=== PATIENT | male | born 1945 | race Caucasian/White ===

== ENCOUNTER 2016-05-13 10:09 | Outpatient (RCR) | payer MEDICARE, OTHER ==
--- OUTSIDE RECORDS SUMMARY | 2016-02-20 13:29 | XMS REPORT | Continuity of Care Document ---
Author Author [facility] Organization [facility] Address Unknown Phone Unavailable Care Team Providers Care Air Brush Operator Name Role Phone BENITO LEE DO PCP Insurance Providers Payer Name Policy Number Subscriber Name Relationship [employer] Medicare [id number] Vic Peres 17 Self / Same As Patient [facility] [id number] Blanca Peres 17 Self / Same As Patient Advance Directives Directive Response Recorded Date/Time Advance Directives No 10/31/14 9:14am Health Care Power of Bullet Slugs Inspector No 10/31/14 9:14am Organ Donor No 10/31/14 9:14am Resuscitation Status Full Code 10/31/14 9:14am Problems No known problems or medical conditions. Medications Medication Dose Route Sig Days/Qty Instructions Order Date Discontinued Date Status Rosuvastatin Calcium 1 Each PO BEDTIME 06/15/11 09/26/13 Discontinued Metformin HCl (Glucophage) 2 Each PO TWICE A DAY 06/15/11 09/26/13 Discontinued Lisinopril 5 Mg PO DAILY 07/13/11 Active Carvedilol (Coreg) 1 Each PO TWICE A DAY 07/13/11 09/26/13 Discontinued Aspirin 325 Mg PO DAILY 07/13/11 09/26/13 Discontinued [Effident] 10 Mg PO DAILY 07/13/11 03/17/13 Discontinued Gabapentin 600 Mg PO WITH EVENING MEAL TAKES 2 (300MG) CAPSULES Active Fish Oil 1,000 Mg PO THREE TIMES A DAY 03/17/13 Active Clopidogrel Bisulfate 75 Mg PO DAILY 03/17/13 Active Rosuvastatin Calcium 20 Mg PO BEDTIME 09/26/13 Active Metformin Hcl 1,000 Mg PO TWICE A DAY 09/26/13 10/31/14 Discontinued Carvedilol 3.125 Mg PO TWICE A DAY 09/26/13 10/31/14 Discontinued Aspirin 81 Mg PO DAILY 09/26/13 Active Albuterol Sulfate 2.5 Mg IH FOUR TIMES DAILY PRN SHORTNESS OF BREATH 10/06/13 10/31/14 Discontinued Carvedilol (Coreg) 3.125 Mg PO TWICE A DAY 10/31/14 Active Ferrous Sulfate 325 Mg PO BEDTIME 10/31/14 Active Social History Social History Problem Response Recorded Date/Time Alcohol Use Denies Use 10/26/2013 1:00pm Recreational Drug Use No 10/26/2013 1:00pm Recent Foreign Travel No 10/26/2013 1:00pm Recent Infectious Disease Exposure No 10/26/2013 1:00pm Hospitalization with Isolation Denies 10/27/2013 1:31pm Smoking Status Former Smoker 10/31/2014 9:15am Do you dip or chew tobacco? No 10/31/2014 9:15am Query Response Start Date Stop Date Smoking Status Former Smoker 10/31/1980 Hospital Discharge Instructions No hospital discharge instructions. Plan of Care No plan of care. Functional Status No functional status results. Allergies, Adverse Reactions, Alerts Allergen Type Severity Reaction Status Last Updated No Known Drug Allergies Active 06/15/11 Immunizations Name Given Type Date of Pneumonia Vaccine 06/02/11 Historical Date of Influenza Vaccine 03/16/11 Historical Tetanus Booster (TDap) Unknown Historical Vital Signs Acute Vital Signs Vital Response Date/Time Temperature (Fahrenheit) 97.8 degrees F (97.6 - 99.5) Temperature (Calculated Celsius) 36.10946 degrees C (36.4 - 37.5) Temperature Source Temporal Pulse Rate (adult) 61 bpm (60 - 90) Respiratory Rate 18 bpm (12 - 24) O2 Sat by Pulse Oximetry 100 % (88 - 100) Blood Pressure 111/72 mm Hg Pain Pain Intensity 0 Height (Feet) 5 feet Height (Inches) 10.00 inches Height (Calculated Centimeters) 177.904165 cm Weight (Pounds) 194 pounds Weight (Calculated Grams) 99088.921 gm Weight (Calculated Kilograms) 87.433774 kilograms Calculated BMI 27.83 Results Laboratory Results Test Name Result Units Flags Reference Collection Date/Time Result Date/ Time Comments Sodium Level 142 MMOL/L 135-145 10/11/2014 6:58am 10/11/2014 7:40am Potassium Level 4.8 MMOL/L 3.6-5.0 10/11/2014 6:58am 10/11/2014 7:40am Chloride Level 107 MMOL/L 98-107 10/11/2014 6:58am 10/11/2014 7:40am Carbon Dioxide Level 26 MMOL/L 21-32 10/11/2014 6:58am 10/11/2014 7: 40am Blood Urea Nitrogen 21 MG/DL H 7-18 10/11/2014 6:58am 10/11/2014 7:40am Creatinine 1.19 MG/DL 0.60-1.30 10/11/2014 6:58am 10/11/2014 7:40am BUN/Creatinine Ratio 18 10/11/2014 6:58am 10/11/2014 7:40am Estimat Glomerular Filtration Rate 60 10/11/2014 6:58am 10/11/2014 7:40am GFR INTERPRETIVE DATA UNITS FOR ESTIMATED GFR (eGFR): mL/min/1.73 M2 REFERENCE RANGE FOR ESTIMATED GFR (eGFR) eGFR NORMAL eGFR >60 MODERATELY DECREASED eGFR 30-59 SEVERLY DECREASED eGFR 15-29 KIDNEY FAILURE <15 (OR DIALYSIS) Glucose Level 108 MG/DL H 70-105 10/11/2014 6:58am 10/11/2014 7:40am Calcium Level 10.1 MG/DL 8.5-10.1 10/11/2014 6:58am 10/11/2014 7:40am Total Bilirubin 0.4 MG/DL 0.1-1.0 10/11/2014 6:58am 10/11/2014 7:40am Alkaline Phosphatase 66 U/L 40-136 10/11/2014 6:58am 10/11/2014 7:40am Aspartate Amino Transf (AST/SGOT) 17 U/L 5-34 10/11/2014 6:58am 2014 7:40am Alanine Aminotransferase (ALT/SGPT) 11 U/L 0-55 10/11/2014 6:58am 10/11 7:40am Total Protein 7.2 G/DL 6.4-8.2 10/11/2014 6:58am 10/11/2014 7:40am Albumin 3.9 G/DL 3.2-4.5 10/11/2014 6:58am 10/11/2014 7:40am Triglycerides Level 135 MG/DL <150 10/11/2014 6:58am 10/11/2014 7:40am Cholesterol Level 143 MG/DL < 200 10/11/2014 6:58am 10/11/2014 7:40am HDL Cholesterol 42 MG/DL 40-60 10/11/2014 6:58am 10/11/2014 7:40am LDL Cholesterol Direct 68 MG/DL 1-129 10/11/2014 6:58am 10/11/2014 7: 40am VLDL Cholesterol 27 MG/DL 5-40 10/11/2014 6:58am 10/11/2014 7:40am White Blood Count 10.7 10^3/uL 4.3-11.0 10/31/2014 9:2510/31/2014 9: 31am Red Blood Count 4.71 10^6/uL 4.35-5.85 10/31/2014 9:10/31/2014 9: 31am Hemoglobin 13.6 G/DL 13.3-17.7 10/31/2014 9:10/31/2014 9:31am Hematocrit 43 % 40-54 10/31/2014 9:10/31/2014 9:31am Mean Corpuscular Volume 91 FL 80-99 10/31/2014 9:10/31/2014 9: 31am Mean Corpuscular Hemoglobin 29 PG 25-34 10/31/2014 9:2510/31/2014 9: 31am Mean Corpuscular Hemoglobin Concent 32 G/DL 32-36 10/31/2014 9:25 9:31am Red Cell Distribution Width 14.4 % 10.0-14.5 10/31/2014 9:252014 9:31am Platelet Count 230 10^3/uL 130-400 10/31/2014 9:10/31/2014 9:31am Mean Platelet Volume 9.3 FL 7.4-10.4 10/31/2014 9:10/31/2014 9: 31am Prothrombin Time 11.8 SEC L 12.2-14.7 10/31/2014 9:10/31/2014 9: 41am INR Comment 0.9 0.8-1.4 10/31/2014 9:10/31/2014 9:41am INTERPRETIVE DATA SUGGESTED THERAPEUTIC RANGE FOR INR'S: VENOUS THROMBOSIS, PULMONARY EMBOLISM, OR PREVENTION OF SYSTEMIC EMBOLISM (EG. IN ATRIAL FIBRILLATION): 2.0 - 3.0 MECHANICAL PROSTHETIC HEART VALVES: 2.5 - 3.5* *NOTE: INR'S UP TO 4.5 MAY BE NECESSARY IN SELECTED GROUPS OF HIGH RISK PATIENTS. [employer] CONSENSUS CONFERENCE ON ANTITHROMBOTIC THERAPY (2000). Activated Partial Thromboplast Time 31 SEC 24-35 10/31/2014 9: 9:41am Sodium Level 142 MMOL/L 135-145 10/31/2014 9:10/31/2014 9:49am Potassium Level 4.8 MMOL/L 3.6-5.0 10/31/2014 9:10/31/2014 9:49am Chloride Level 106 MMOL/L 98-107 10/31/2014 9:10/31/2014 9:49am Carbon Dioxide Level 27 MMOL/L 21-32 10/31/2014 9:10/31/2014 9: 49am Blood Urea Nitrogen 18 MG/DL 7-18 10/31/2014 9:10/31/2014 9:49am Creatinine 1.32 MG/DL H 0.60-1.30 10/31/2014 9:10/31/2014 9:49am BUN/Creatinine Ratio 14 10/31/2014 9:10/31/2014 9:49am Estimat Glomerular Filtration Rate 54 10/31/2014 9:10/31/2014 9:49am GFR INTERPRETIVE DATA UNITS FOR ESTIMATED GFR (eGFR): mL/min/1.73 M2 REFERENCE RANGE FOR ESTIMATED GFR (eGFR) eGFR NORMAL eGFR >60 MODERATELY DECREASED eGFR 30-59 SEVERLY DECREASED eGFR 15-29 KIDNEY FAILURE <15 (OR DIALYSIS) Glucose Level 107 MG/DL H 70-105 10/31/2014 9:10/31/2014 9:49am Calcium Level 10.0 MG/DL 8.5-10.1 10/31/2014 9:10/31/2014 9:49am Total Bilirubin 0.4 MG/DL 0.1-1.0 10/31/2014 9:10/31/2014 9:49am Alkaline Phosphatase 74 U/L 40-136 10/31/2014 9:10/31/2014 9:49am Aspartate Amino Transf (AST/SGOT) 24 U/L 5-34 10/31/2014 9:2014 9:49am Alanine Aminotransferase (ALT/SGPT) 18 U/L 0-55 10/31/2014 9:10/31 9:49am Total Protein 7.6 G/DL 6.4-8.2 10/31/2014 9:10/31/2014 9:49am Albumin 4.2 G/DL 3.2-4.5 10/31/2014 9:10/31/2014 9:49am Triglycerides Level 152 MG/DL H <150 10/31/2014 9:10/31/2014 9:49am Cholesterol Level 157 MG/DL < 200 10/31/2014 9:10/31/2014 9:49am HDL Cholesterol 46 MG/DL 40-60 10/31/2014 9:10/31/2014 9:49am LDL Cholesterol Direct 73 MG/DL 1-129 10/31/2014 9:10/31/2014 9: 49am VLDL Cholesterol 30 MG/DL 5-40 10/31/2014 9:10/31/2014 9:49am Procedures Procedure Status Date Provider(s) Color Doppler echocardiography completed 10/10/14 PREETI WALTON DOORPERSON Tracing only of electrocardiogram completed 10/31/14 RACHEL BERGERON MD FACP FAC CCDS Encounters Encounter Location Date/Time Departed [facility] 10/31/14 8:58am Registered Clinic [facility] 10/11/14 6:53am Registered Clinic [facility] 10/10/14 6:52am
[2016-03-05 11:46] LABS: BASOPHILS % (AUTO) 0 % (0-10); EOSINOPHILS # (AUTO) 0.1 10^3/uL (0.0-0.3); EOSINOPHILS % (AUTO) 2 % (0-10); LYMPHOCYTES # (AUTO) 1.3 X 10^3 (1.0-4.0); LYMPHOCYTES % (AUTO) 20 % (12-44); MEAN CORPUSCULAR HEMOGLOBIN 30 PG (25-34); MEAN CORPUSCULAR HGB CONC 31 G/DL (32-36); MEAN CORPUSCULAR VOLUME 95 FL (80-99); MONOCYTES # (AUTO) 0.6 X 10^3 (0.0-1.0); MONOCYTES % (AUTO) 9 % (0-12); NEUTROPHILS # (AUTO) 4.5 X 10^3 (1.8-7.8); NEUTROPHILS % (AUTO) 68 % (42-75); PLATELET COUNT 196 10^3/uL (130-400); RED BLOOD COUNT 3.59 10^6/uL (4.35-5.85); RED CELL DISTRIBUTION WIDTH 14.3 % (10.0-14.5); WHITE BLOOD COUNT 6.5 10^3/uL (4.3-11.0)
[2016-03-05 12:36] LABS: ALANINE AMINOTRANSFERASE 11 U/L (0-55); ALBUMIN 3.6 G/DL (3.2-4.5); ANION GAP 7 MMOL/L (5-14); ASPARTATE AMINO TRANSFERASE 18 U/L (5-34); BILIRUBIN,TOTAL 0.2 MG/DL (0.1-1.0); BLOOD UREA NITROGEN 22 MG/DL (7-18); BUN/CREATININE RATIO 23; CALCIUM 9.5 MG/DL (8.5-10.1); CARBON DIOXIDE 32 MMOL/L (21-32); CHLORIDE 101 MMOL/L (98-107); CREATININE SERUM 0.96 MG/DL (0.60-1.30); GFR ESTIMATED > 60; GLUCOSE 131 MG/DL (70-105); POTASSIUM 4.1 MMOL/L (3.6-5.0); SODIUM 140 MMOL/L (135-145); TOTAL PROTEIN 6.6 G/DL (6.4-8.2)
[2016-03-05 12:57] LABS: THYROID STIMULATING HORMONE 4.81 UIU/ML (0.35-4.94)
[2016-03-05 14:13] LABS: %SAT TOTAL IRON BINDING CAPIC 15 % (15-50); TIBC 300 ug/dL (280-380)
[2016-03-06 07:56] LABS: UIBC 256 ug/dL (55-450)
[2016-03-06 07:57] LABS: FERRITIN 150 ng/mL (25-300)
[2016-03-19 14:39] LABS: BASOPHILS % (AUTO) 1 % (0-10); EOSINOPHILS # (AUTO) 0.1 10^3/uL (0.0-0.3); EOSINOPHILS % (AUTO) 1 % (0-10); LYMPHOCYTES # (AUTO) 1.5 X 10^3 (1.0-4.0); LYMPHOCYTES % (AUTO) 29 % (12-44); MEAN CORPUSCULAR HEMOGLOBIN 30 PG (25-34); MEAN CORPUSCULAR HGB CONC 31 G/DL (32-36); MEAN CORPUSCULAR VOLUME 95 FL (80-99); MEAN PLATELET VOLUME 8.2 FL (7.4-10.4); MONOCYTES # (AUTO) 0.6 X 10^3 (0.0-1.0); MONOCYTES % (AUTO) 11 % (0-12); NEUTROPHILS % (AUTO) 58 % (42-75); PLATELET COUNT 213 10^3/uL (130-400); RED BLOOD COUNT 3.73 10^6/uL (4.35-5.85); RED CELL DISTRIBUTION WIDTH 14.2 % (10.0-14.5); WHITE BLOOD COUNT 5.1 10^3/uL (4.3-11.0)
[2016-03-19 15:06] LABS: ALBUMIN 3.6 G/DL (3.2-4.5); BILIRUBIN,TOTAL 0.2 MG/DL (0.1-1.0); CALCIUM 9.3 MG/DL (8.5-10.1); CREATININE SERUM 1.25 MG/DL (0.60-1.30); POTASSIUM 4.5 MMOL/L (3.6-5.0); TOTAL PROTEIN 6.7 G/DL (6.4-8.2)
[2016-04-02 14:18] LABS: BASOPHILS % (AUTO) 1 % (0-10); EOSINOPHILS # (AUTO) 0.1 10^3/uL (0.0-0.3); EOSINOPHILS % (AUTO) 1 % (0-10); LYMPHOCYTES # (AUTO) 1.4 X 10^3 (1.0-4.0); LYMPHOCYTES % (AUTO) 17 % (12-44); MEAN CORPUSCULAR HEMOGLOBIN 30 PG (25-34); MEAN CORPUSCULAR HGB CONC 32 G/DL (32-36); MEAN CORPUSCULAR VOLUME 95 FL (80-99); MEAN PLATELET VOLUME 7.8 FL (7.4-10.4); MONOCYTES # (AUTO) 0.9 X 10^3 (0.0-1.0); MONOCYTES % (AUTO) 10 % (0-12); NEUTROPHILS # (AUTO) 6.2 X 10^3 (1.8-7.8); NEUTROPHILS % (AUTO) 72 % (42-75); PLATELET COUNT 228 10^3/uL (130-400); RED CELL DISTRIBUTION WIDTH 14.3 % (10.0-14.5); WHITE BLOOD COUNT 8.6 10^3/uL (4.3-11.0)
[2016-04-02 14:42] LABS: ALBUMIN 3.5 G/DL (3.2-4.5); BILIRUBIN,TOTAL 0.4 MG/DL (0.1-1.0); CALCIUM 9.5 MG/DL (8.5-10.1); CREATININE SERUM 1.3 MG/DL (0.60-1.30); TOTAL PROTEIN 6.4 G/DL (6.4-8.2)
[2016-04-15 14:34] LABS: BASOPHILS % (AUTO) 0 % (0-10); EOSINOPHILS # (AUTO) 0.1 10^3/uL (0.0-0.3); EOSINOPHILS % (AUTO) 2 % (0-10); LYMPHOCYTES # (AUTO) 1.7 X 10^3 (1.0-4.0); LYMPHOCYTES % (AUTO) 22 % (12-44); MEAN CORPUSCULAR HEMOGLOBIN 30 PG (25-34); MEAN CORPUSCULAR HGB CONC 32 G/DL (32-36); MEAN CORPUSCULAR VOLUME 95 FL (80-99); MEAN PLATELET VOLUME 7.6 FL (7.4-10.4); MONOCYTES # (AUTO) 0.7 X 10^3 (0.0-1.0); MONOCYTES % (AUTO) 9 % (0-12); NEUTROPHILS # (AUTO) 5.2 X 10^3 (1.8-7.8); NEUTROPHILS % (AUTO) 67 % (42-75); PLATELET COUNT 265 10^3/uL (130-400); RED BLOOD COUNT 3.82 10^6/uL (4.35-5.85); RED CELL DISTRIBUTION WIDTH 14.4 % (10.0-14.5); WHITE BLOOD COUNT 7.6 10^3/uL (4.3-11.0)
[2016-04-15 15:39] LABS: ALANINE AMINOTRANSFERASE 18 U/L (0-55); ALBUMIN 3.4 G/DL (3.2-4.5); ANION GAP 9 MMOL/L (5-14); ASPARTATE AMINO TRANSFERASE 29 U/L (5-34); BILIRUBIN,TOTAL 0.3 MG/DL (0.1-1.0); BLOOD UREA NITROGEN 25 MG/DL (7-18); BUN/CREATININE RATIO 21; CALCIUM 9.5 MG/DL (8.5-10.1); CARBON DIOXIDE 32 MMOL/L (21-32); CHLORIDE 95 MMOL/L (98-107); CREATININE SERUM 1.17 MG/DL (0.60-1.30); GFR ESTIMATED > 60; GLUCOSE 108 MG/DL (70-105); SODIUM 136 MMOL/L (135-145); TOTAL PROTEIN 5.9 G/DL (6.4-8.2)
[~2016-05-13] VITALS: Ht 177.8 cm; Wt 71.2 kg
[~2016-05-13 10:09] MED LIST: ALBU2.5V4 IH; ASPI-624 PO; ASPI325T32 PO; CARV3.12 PO; CARV3.122 PO; CARV6.252 PO; CEFU500T5 PO; CLPD75T PO; FERR-57 PO; GBPN300C PO; HYDR-3812 PO; HYDR-3820 PO; LEVO50TA6 PO; LEVO750T39 PO; LISI5TAB PO; MAGN400T39 PO; METF-380 PO; METF1000 PO; MORP-34 PO; MORP15TA PO; MORP60TA52 PO; MTF500T PO; NFPRILOC40 PO; NIVOLUMAB IV SCH; NS IV 500 ML (CANCER CENTER) IV SCH; NS IV SCH; OMG1KC PO; ONDA8TAB6 PO; ROSU10TA12 PO; ROSU20TA14 PO; TAMS0.4C2 PO; [UNRECOGNIZED DRUG - OTHER] PO
== END 2016-05-20 | disposition home or self-care (01) ==
LOC: ONC 10:09
PROVIDERS: ATTEND Internal Medicine Hematology & Oncology
DX: Z51.0 Encounter for antineoplastic radiation therapy (principal); Z51.11 Encounter for antineoplastic chemotherapy; C34.11 Malignant neoplasm of upper lobe, right bronchus or lung; C79.51 Secondary malignant neoplasm of bone; D64.9 Anemia, unspecified; E11.21 Type 2 diabetes mellitus with diabetic nephropathy; I10 Essential (primary) hypertension; I25.10 Atherosclerotic heart disease of native coronary artery without angina pectoris; N28.9 Disorder of kidney and ureter, unspecified; Z79.899 Other long term (current) drug therapy
CPT/HCPCS: 36415; 36591; 77280; 77295; 77334; 77336; 77412; 77417; 80053; 82728; 83540; 84443; 85025; 96413; 99213

== ENCOUNTER → 2016-08-19 | Outpatient (RCR) | payer MEDICARE, OTHER ==
--- OUTSIDE RECORDS SUMMARY | 2016-05-21 14:04 | XMS REPORT | Continuity of Care Document ---
Author Author [facility] Organization [facility] Address Unknown Phone Unavailable Care Team Providers Care Cardiology Clinical Nurse Specialist Name Role Phone BENITO LEE DO PCP Insurance Providers Payer Name Policy Number Subscriber Name Relationship [employer] Medicare [id number] Vic Peres 17 Self / Same As Patient [facility] [id number] Blanca Peres 17 Self / Same As Patient Advance Directives Directive Response Recorded Date/Time Advance Directives No 10/31/14 9:14am Health Care Power of Price Analyst No 10/31/14 9:14am Organ Donor No 10/31/14 [...] F (97.6 - 99.5) Temperature (Calculated Celsius) 36.06741 degrees C (36.4 - 37.5) Temperature Source Temporal Pulse Rate (adult) 61 bpm (60 - 90) Respiratory Rate 18 bpm (12 - 24) O2 Sat by Pulse Oximetry 100 % (88 - 100) Blood Pressure 111/72 mm Hg Pain Pain Intensity 0 Height (Feet) 5 feet Height (Inches) 10.00 inches Height (Calculated Centimeters) 177.002995 cm Weight (Pounds) 194 pounds Weight (Calculated Grams) 09328.921 gm Weight (Calculated Kilograms) 87.875200 kilograms Calculated BMI 27.83 Results Laboratory Results [...] SELECTED GROUPS OF HIGH RISK PATIENTS. [employer] CONSENSUS CONFERENCE ON [...] Color Doppler echocardiography completed 10/10/14 PREETI WALTON ANCHOR OPERATOR Tracing only of electrocardiogram completed 10/31/14 RACHEL BERGERON MD FACP FAC CCDS Encounters Encounter Location Date/Time Departed [facility] 10/31/14 8:58am Registered Clinic [facility] 10/11/14 6:53am Registered Clinic [facility] 10/10/14 6:52am
[2016-05-21 14:41] LABS: BASOPHILS % (AUTO) 0 % (0-10); EOSINOPHILS # (AUTO) 0.1 10^3/uL (0.0-0.3); EOSINOPHILS % (AUTO) 1 % (0-10); LYMPHOCYTES # (AUTO) 1.1 X 10^3 (1.0-4.0); LYMPHOCYTES % (AUTO) 16 % (12-44); MEAN CORPUSCULAR HEMOGLOBIN 30 PG (25-34); MEAN CORPUSCULAR HGB CONC 32 G/DL (32-36); MEAN CORPUSCULAR VOLUME 95 FL (80-99); MEAN PLATELET VOLUME 8.3 FL (7.4-10.4); MONOCYTES # (AUTO) 0.8 X 10^3 (0.0-1.0); MONOCYTES % (AUTO) 12 % (0-12); NEUTROPHILS # (AUTO) 4.6 X 10^3 (1.8-7.8); NEUTROPHILS % (AUTO) 70 % (42-75); PLATELET COUNT 256 10^3/uL (130-400); RED BLOOD COUNT 3.92 10^6/uL (4.35-5.85); RED CELL DISTRIBUTION WIDTH 14.8 % (10.0-14.5); WHITE BLOOD COUNT 6.6 10^3/uL (4.3-11.0)
[2016-05-21 15:08] LABS: ALANINE AMINOTRANSFERASE 10 U/L (0-55); ALBUMIN 3.4 G/DL (3.2-4.5); ANION GAP 13 MMOL/L (5-14); ASPARTATE AMINO TRANSFERASE 17 U/L (5-34); BILIRUBIN,TOTAL 0.3 MG/DL (0.1-1.0); BLOOD UREA NITROGEN 27 MG/DL (7-18); BUN/CREATININE RATIO 28; CALCIUM 9.7 MG/DL (8.5-10.1); CARBON DIOXIDE 27 MMOL/L (21-32); CHLORIDE 99 MMOL/L (98-107); CREATININE SERUM 0.98 MG/DL (0.60-1.30); GFR ESTIMATED > 60; GLUCOSE 108 MG/DL (70-105); POTASSIUM 4.4 MMOL/L (3.6-5.0); SODIUM 139 MMOL/L (135-145); TOTAL PROTEIN 6.3 G/DL (6.4-8.2)
[2016-06-02 14:19] LABS: BASOPHILS % (AUTO) 0 % (0-10); EOSINOPHILS # (AUTO) 0.1 10^3/uL (0.0-0.3); EOSINOPHILS % (AUTO) 1 % (0-10); LYMPHOCYTES # (AUTO) 1.1 X 10^3 (1.0-4.0); LYMPHOCYTES % (AUTO) 20 % (12-44); MEAN CORPUSCULAR HEMOGLOBIN 30 PG (25-34); MEAN CORPUSCULAR HGB CONC 32 G/DL (32-36); MEAN CORPUSCULAR VOLUME 94 FL (80-99); MEAN PLATELET VOLUME 7.5 FL (7.4-10.4); MONOCYTES # (AUTO) 0.7 X 10^3 (0.0-1.0); MONOCYTES % (AUTO) 12 % (0-12); NEUTROPHILS # (AUTO) 3.8 X 10^3 (1.8-7.8); NEUTROPHILS % (AUTO) 66 % (42-75); PLATELET COUNT 277 10^3/uL (130-400); RED BLOOD COUNT 3.93 10^6/uL (4.35-5.85); RED CELL DISTRIBUTION WIDTH 14.9 % (10.0-14.5); WHITE BLOOD COUNT 5.7 10^3/uL (4.3-11.0)
[2016-06-02 14:48] LABS: ALANINE AMINOTRANSFERASE 11 U/L (0-55); ANION GAP 10 MMOL/L (5-14); ASPARTATE AMINO TRANSFERASE 17 U/L (5-34); BILIRUBIN,TOTAL 0.3 MG/DL (0.1-1.0); BLOOD UREA NITROGEN 29 MG/DL (7-18); BUN/CREATININE RATIO 28; CALCIUM 9.7 MG/DL (8.5-10.1); CARBON DIOXIDE 31 MMOL/L (21-32); CHLORIDE 95 MMOL/L (98-107); CREATININE SERUM 1.03 MG/DL (0.60-1.30); GFR ESTIMATED > 60; GLUCOSE 103 MG/DL (70-105); MAGNESIUM 2.2 MG/DL (1.8-2.4); POTASSIUM 4.7 MMOL/L (3.6-5.0); SODIUM 136 MMOL/L (135-145); TOTAL PROTEIN 5.8 G/DL (6.4-8.2)
[2016-06-02 15:09] LABS: THYROID STIMULATING HORMONE 2.64 UIU/ML (0.35-4.94)
[2016-06-16 13:52] LABS: BASOPHILS % (AUTO) 0 % (0-10); EOSINOPHILS % (AUTO) 0 % (0-10); LYMPHOCYTES # (AUTO) 0.7 X 10^3 (1.0-4.0); LYMPHOCYTES % (AUTO) 10 % (12-44); MEAN CORPUSCULAR HEMOGLOBIN 30 PG (25-34); MEAN CORPUSCULAR HGB CONC 32 G/DL (32-36); MEAN CORPUSCULAR VOLUME 95 FL (80-99); MEAN PLATELET VOLUME 7.5 FL (7.4-10.4); MONOCYTES # (AUTO) 0.6 X 10^3 (0.0-1.0); MONOCYTES % (AUTO) 8 % (0-12); NEUTROPHILS # (AUTO) 5.6 X 10^3 (1.8-7.8); NEUTROPHILS % (AUTO) 81 % (42-75); PLATELET COUNT 313 10^3/uL (130-400); RED BLOOD COUNT 4.02 10^6/uL (4.35-5.85); RED CELL DISTRIBUTION WIDTH 15.2 % (10.0-14.5); WHITE BLOOD COUNT 6.9 10^3/uL (4.3-11.0)
[2016-06-16 14:25] LABS: ALANINE AMINOTRANSFERASE 11 U/L (0-55); ANION GAP 8 MMOL/L (5-14); ASPARTATE AMINO TRANSFERASE 19 U/L (5-34); BILIRUBIN,TOTAL 0.3 MG/DL (0.1-1.0); BLOOD UREA NITROGEN 24 MG/DL (7-18); BUN/CREATININE RATIO 24; CALCIUM 9.2 MG/DL (8.5-10.1); CARBON DIOXIDE 33 MMOL/L (21-32); CHLORIDE 98 MMOL/L (98-107); CREATININE SERUM 1.02 MG/DL (0.60-1.30); GFR ESTIMATED > 60; GLUCOSE 105 MG/DL (70-105); POTASSIUM 4.6 MMOL/L (3.6-5.0); SODIUM 139 MMOL/L (135-145); TOTAL PROTEIN 5.9 G/DL (6.4-8.2)
[2016-06-27 10:08] LABS: BASOPHILS % (AUTO) 0 % (0-10); EOSINOPHILS # (AUTO) 0.1 10^3/uL (0.0-0.3); EOSINOPHILS % (AUTO) 1 % (0-10); LYMPHOCYTES # (AUTO) 0.9 X 10^3 (1.0-4.0); LYMPHOCYTES % (AUTO) 10 % (12-44); MEAN CORPUSCULAR HEMOGLOBIN 31 PG (25-34); MEAN CORPUSCULAR HGB CONC 32 G/DL (32-36); MEAN CORPUSCULAR VOLUME 96 FL (80-99); MEAN PLATELET VOLUME 8.1 FL (7.4-10.4); MONOCYTES # (AUTO) 0.7 X 10^3 (0.0-1.0); MONOCYTES % (AUTO) 8 % (0-12); NEUTROPHILS # (AUTO) 7.2 X 10^3 (1.8-7.8); NEUTROPHILS % (AUTO) 81 % (42-75); PLATELET COUNT 327 10^3/uL (130-400); RED CELL DISTRIBUTION WIDTH 15.2 % (10.0-14.5); WHITE BLOOD COUNT 8.9 10^3/uL (4.3-11.0)
[2016-06-27 10:33] LABS: ALANINE AMINOTRANSFERASE 11 U/L (0-55); ALBUMIN 2.8 G/DL (3.2-4.5); ANION GAP 9 MMOL/L (5-14); ASPARTATE AMINO TRANSFERASE 18 U/L (5-34); BILIRUBIN,TOTAL 0.3 MG/DL (0.1-1.0); BLOOD UREA NITROGEN 20 MG/DL (7-18); BUN/CREATININE RATIO 23; CALCIUM 9.1 MG/DL (8.5-10.1); CARBON DIOXIDE 29 MMOL/L (21-32); CHLORIDE 98 MMOL/L (98-107); CREATININE SERUM 0.86 MG/DL (0.60-1.30); GFR ESTIMATED > 60; GLUCOSE 119 MG/DL (70-105); POTASSIUM 4.1 MMOL/L (3.6-5.0); SODIUM 136 MMOL/L (135-145)
[2016-07-09 14:35] LABS: BASOPHILS % (AUTO) 0 % (0-10); EOSINOPHILS % (AUTO) 0 % (0-10); LYMPHOCYTES % (AUTO) 9 % (12-44); MEAN CORPUSCULAR HEMOGLOBIN 30 PG (25-34); MEAN CORPUSCULAR HGB CONC 31 G/DL (32-36); MEAN CORPUSCULAR VOLUME 96 FL (80-99); MEAN PLATELET VOLUME 7.9 FL (7.4-10.4); MONOCYTES # (AUTO) 0.9 X 10^3 (0.0-1.0); MONOCYTES % (AUTO) 7 % (0-12); NEUTROPHILS # (AUTO) 9.6 X 10^3 (1.8-7.8); NEUTROPHILS % (AUTO) 84 % (42-75); PLATELET COUNT 300 10^3/uL (130-400); RED BLOOD COUNT 3.82 10^6/uL (4.35-5.85); RED CELL DISTRIBUTION WIDTH 15.6 % (10.0-14.5); WHITE BLOOD COUNT 11.5 10^3/uL (4.3-11.0)
[2016-07-09 14:59] LABS: ALANINE AMINOTRANSFERASE 12 U/L (0-55); ALBUMIN 2.8 G/DL (3.2-4.5); ANION GAP 10 MMOL/L (5-14); ASPARTATE AMINO TRANSFERASE 20 U/L (5-34); BILIRUBIN,TOTAL 0.3 MG/DL (0.1-1.0); BLOOD UREA NITROGEN 22 MG/DL (7-18); BUN/CREATININE RATIO 27; CARBON DIOXIDE 30 MMOL/L (21-32); CHLORIDE 99 MMOL/L (98-107); CREATININE SERUM 0.82 MG/DL (0.60-1.30); GFR ESTIMATED > 60; GLUCOSE 85 MG/DL (70-105); POTASSIUM 4.7 MMOL/L (3.6-5.0); SODIUM 139 MMOL/L (135-145); TOTAL PROTEIN 5.9 G/DL (6.4-8.2)
[2016-07-09 15:19] LABS: THYROID STIMULATING HORMONE 5.31 UIU/ML (0.35-4.94)
[2016-07-17 10:15] LABS: BASOPHILS % (AUTO) 0 % (0-10); EOSINOPHILS # (AUTO) 0.1 10^3/uL (0.0-0.3); EOSINOPHILS % (AUTO) 1 % (0-10); LYMPHOCYTES # (AUTO) 0.9 X 10^3 (1.0-4.0); LYMPHOCYTES % (AUTO) 9 % (12-44); MEAN CORPUSCULAR HEMOGLOBIN 30 PG (25-34); MEAN CORPUSCULAR HGB CONC 31 G/DL (32-36); MEAN CORPUSCULAR VOLUME 97 FL (80-99); MEAN PLATELET VOLUME 7.6 FL (7.4-10.4); MONOCYTES % (AUTO) 10 % (0-12); NEUTROPHILS # (AUTO) 7.7 X 10^3 (1.8-7.8); NEUTROPHILS % (AUTO) 80 % (42-75); PLATELET COUNT 304 10^3/uL (130-400); RED BLOOD COUNT 3.63 10^6/uL (4.35-5.85); RED CELL DISTRIBUTION WIDTH 15.8 % (10.0-14.5); WHITE BLOOD COUNT 9.6 10^3/uL (4.3-11.0)
[2016-07-17 12:09] LABS: ANION GAP 11 MMOL/L (5-14); BLOOD UREA NITROGEN 24 MG/DL (7-18); BUN/CREATININE RATIO 28; CARBON DIOXIDE 30 MMOL/L (21-32); CHLORIDE 98 MMOL/L (98-107); CREATININE SERUM 0.86 MG/DL (0.60-1.30); GFR ESTIMATED > 60; GLUCOSE 103 MG/DL (70-105); POTASSIUM 4.2 MMOL/L (3.6-5.0); SODIUM 139 MMOL/L (135-145)
[2016-07-23 14:21] LABS: BASOPHILS % (AUTO) 0 % (0-10); EOSINOPHILS % (AUTO) 0 % (0-10); LYMPHOCYTES % (AUTO) 9 % (12-44); MEAN CORPUSCULAR HEMOGLOBIN 31 PG (25-34); MEAN CORPUSCULAR HGB CONC 32 G/DL (32-36); MEAN CORPUSCULAR VOLUME 96 FL (80-99); MEAN PLATELET VOLUME 7.5 FL (7.4-10.4); MONOCYTES # (AUTO) 0.6 X 10^3 (0.0-1.0); MONOCYTES % (AUTO) 5 % (0-12); NEUTROPHILS % (AUTO) 86 % (42-75); PLATELET COUNT 314 10^3/uL (130-400); RED BLOOD COUNT 3.76 10^6/uL (4.35-5.85); RED CELL DISTRIBUTION WIDTH 15.9 % (10.0-14.5); WHITE BLOOD COUNT 11.7 10^3/uL (4.3-11.0)
[2016-07-23 14:46] LABS: ANION GAP 11 MMOL/L (5-14); BLOOD UREA NITROGEN 23 MG/DL (7-18); BUN/CREATININE RATIO 27; CALCIUM 9.1 MG/DL (8.5-10.1); CARBON DIOXIDE 29 MMOL/L (21-32); CHLORIDE 99 MMOL/L (98-107); CREATININE SERUM 0.84 MG/DL (0.60-1.30); GFR ESTIMATED > 60; GLUCOSE 160 MG/DL (70-105); POTASSIUM 4.2 MMOL/L (3.6-5.0); SODIUM 139 MMOL/L (135-145)
[2016-07-30 15:52] LABS: BASOPHILS % (AUTO) 0 % (0-10); EOSINOPHILS % (AUTO) 0 % (0-10); LYMPHOCYTES # (AUTO) 0.9 X 10^3 (1.0-4.0); LYMPHOCYTES % (AUTO) 5 % (12-44); MEAN CORPUSCULAR HEMOGLOBIN 31 PG (25-34); MEAN CORPUSCULAR HGB CONC 32 G/DL (32-36); MEAN CORPUSCULAR VOLUME 96 FL (80-99); MEAN PLATELET VOLUME 7.8 FL (7.4-10.4); MONOCYTES # (AUTO) 0.7 X 10^3 (0.0-1.0); MONOCYTES % (AUTO) 4 % (0-12); NEUTROPHILS # (AUTO) 15.8 X 10^3 (1.8-7.8); NEUTROPHILS % (AUTO) 91 % (42-75); PLATELET COUNT 326 10^3/uL (130-400); RED BLOOD COUNT 3.93 10^6/uL (4.35-5.85); RED CELL DISTRIBUTION WIDTH 15.6 % (10.0-14.5); WHITE BLOOD COUNT 17.4 10^3/uL (4.3-11.0)
[2016-07-30 16:15] LABS: ALANINE AMINOTRANSFERASE 14 U/L (0-55); ALBUMIN 2.8 G/DL (3.2-4.5); ANION GAP 12 MMOL/L (5-14); ASPARTATE AMINO TRANSFERASE 19 U/L (5-34); BILIRUBIN,TOTAL 0.4 MG/DL (0.1-1.0); BLOOD UREA NITROGEN 23 MG/DL (7-18); BUN/CREATININE RATIO 27; CALCIUM 8.9 MG/DL (8.5-10.1); CARBON DIOXIDE 28 MMOL/L (21-32); CHLORIDE 97 MMOL/L (98-107); CREATININE SERUM 0.86 MG/DL (0.60-1.30); GFR ESTIMATED > 60; GLUCOSE 90 MG/DL (70-105); POTASSIUM 3.8 MMOL/L (3.6-5.0); SODIUM 137 MMOL/L (135-145); TOTAL PROTEIN 5.7 G/DL (6.4-8.2)
[2016-08-05 13:12] LABS: BASOPHILS % (AUTO) 0 % (0-10); EOSINOPHILS # (AUTO) 0.1 10^3/uL (0.0-0.3); EOSINOPHILS % (AUTO) 0 % (0-10); LYMPHOCYTES # (AUTO) 1.1 X 10^3 (1.0-4.0); LYMPHOCYTES % (AUTO) 6 % (12-44); MEAN CORPUSCULAR HEMOGLOBIN 31 PG (25-34); MEAN CORPUSCULAR HGB CONC 32 G/DL (32-36); MEAN CORPUSCULAR VOLUME 97 FL (80-99); MONOCYTES # (AUTO) 0.9 X 10^3 (0.0-1.0); MONOCYTES % (AUTO) 5 % (0-12); NEUTROPHILS # (AUTO) 14.8 X 10^3 (1.8-7.8); NEUTROPHILS % (AUTO) 88 % (42-75); PLATELET COUNT 278 10^3/uL (130-400); RED BLOOD COUNT 3.57 10^6/uL (4.35-5.85); RED CELL DISTRIBUTION WIDTH 15.8 % (10.0-14.5); WHITE BLOOD COUNT 16.9 10^3/uL (4.3-11.0)
[2016-08-05 13:41] LABS: ALANINE AMINOTRANSFERASE 15 U/L (0-55); ALBUMIN 2.8 G/DL (3.2-4.5); ANION GAP 12 MMOL/L (5-14); ASPARTATE AMINO TRANSFERASE 22 U/L (5-34); BILIRUBIN,TOTAL 0.3 MG/DL (0.1-1.0); BLOOD UREA NITROGEN 28 MG/DL (7-18); BUN/CREATININE RATIO 29; CARBON DIOXIDE 29 MMOL/L (21-32); CHLORIDE 97 MMOL/L (98-107); CREATININE SERUM 0.95 MG/DL (0.60-1.30); GFR ESTIMATED > 60; GLUCOSE 81 MG/DL (70-105); POTASSIUM 5.1 MMOL/L (3.6-5.0); SODIUM 138 MMOL/L (135-145); TOTAL PROTEIN 5.8 G/DL (6.4-8.2)
[2016-08-12 09:46] LABS: BASOPHILS % (AUTO) 0 % (0-10); EOSINOPHILS # (AUTO) 0.2 10^3/uL (0.0-0.3); EOSINOPHILS % (AUTO) 1 % (0-10); LYMPHOCYTES # (AUTO) 1.2 X 10^3 (1.0-4.0); LYMPHOCYTES % (AUTO) 9 % (12-44); MEAN CORPUSCULAR HEMOGLOBIN 31 PG (25-34); MEAN CORPUSCULAR HGB CONC 32 G/DL (32-36); MEAN CORPUSCULAR VOLUME 97 FL (80-99); MEAN PLATELET VOLUME 7.7 FL (7.4-10.4); MONOCYTES # (AUTO) 0.7 X 10^3 (0.0-1.0); MONOCYTES % (AUTO) 5 % (0-12); NEUTROPHILS # (AUTO) 11.8 X 10^3 (1.8-7.8); NEUTROPHILS % (AUTO) 85 % (42-75); PLATELET COUNT 303 10^3/uL (130-400); RED BLOOD COUNT 3.88 10^6/uL (4.35-5.85); RED CELL DISTRIBUTION WIDTH 15.7 % (10.0-14.5); WHITE BLOOD COUNT 13.9 10^3/uL (4.3-11.0)
[2016-08-12 10:21] LABS: ANION GAP 11 MMOL/L (5-14); BLOOD UREA NITROGEN 21 MG/DL (7-18); BUN/CREATININE RATIO 27; CALCIUM 9.5 MG/DL (8.5-10.1); CARBON DIOXIDE 33 MMOL/L (21-32); CHLORIDE 96 MMOL/L (98-107); CREATININE SERUM 0.77 MG/DL (0.60-1.30); GFR ESTIMATED > 60; GLUCOSE 80 MG/DL (70-105); POTASSIUM 4.5 MMOL/L (3.6-5.0); SODIUM 140 MMOL/L (135-145)
[~2016-08-19] VITALS: Ht 177.8 cm; Wt 61.7 kg
[~2016-08-19] MED LIST changes: -NIVOLUMAB IV SCH; +NS (IVPB) CANCER CENTER 250 ML ONE; +NS IV 500 ML (CANCER CENTER) 500 ML ONE; -NS IV 500 ML (CANCER CENTER) IV SCH; -NS IV SCH; +PEMBROLIZUMAB 200 MG in NS (IVPB) CANCER CENTER 50 ML IV SCH
[2016-08-19 13:02] LABS: BASOPHILS % (AUTO) 0 % (0-10); EOSINOPHILS % (AUTO) 0 % (0-10); LYMPHOCYTES % (AUTO) 5 % (12-44); MEAN CORPUSCULAR HEMOGLOBIN 32 PG (25-34); MEAN CORPUSCULAR HGB CONC 32 G/DL (32-36); MEAN CORPUSCULAR VOLUME 98 FL (80-99); MEAN PLATELET VOLUME 8.2 FL (7.4-10.4); MONOCYTES % (AUTO) 5 % (0-12); NEUTROPHILS # (AUTO) 19.1 X 10^3 (1.8-7.8); NEUTROPHILS % (AUTO) 91 % (42-75); PLATELET COUNT 351 10^3/uL (130-400); RED BLOOD COUNT 4.27 10^6/uL (4.35-5.85); RED CELL DISTRIBUTION WIDTH 15.9 % (10.0-14.5); WHITE BLOOD COUNT 21.1 10^3/uL (4.3-11.0)
[2016-08-19 13:16] LABS: ANION GAP 10 MMOL/L (5-14); BLOOD UREA NITROGEN 26 MG/DL (7-18); BUN/CREATININE RATIO 28; CALCIUM 9.2 MG/DL (8.5-10.1); CARBON DIOXIDE 33 MMOL/L (21-32); CHLORIDE 96 MMOL/L (98-107); CREATININE SERUM 0.92 MG/DL (0.60-1.30); GFR ESTIMATED > 60; GLUCOSE 101 MG/DL (70-105); POTASSIUM 4.3 MMOL/L (3.6-5.0); SODIUM 139 MMOL/L (135-145)
== END | disposition home or self-care (01) ==
LOC: ONC 05-21 14:01
PROVIDERS: ATTEND Internal Medicine Hematology & Oncology
DX: Z51.11 Encounter for antineoplastic chemotherapy (principal); C34.11 Malignant neoplasm of upper lobe, right bronchus or lung; C79.51 Secondary malignant neoplasm of bone; E11.21 Type 2 diabetes mellitus with diabetic nephropathy; I10 Essential (primary) hypertension; I25.10 Atherosclerotic heart disease of native coronary artery without angina pectoris; D64.9 Anemia, unspecified; N28.9 Disorder of kidney and ureter, unspecified; Z79.899 Other long term (current) drug therapy
CPT/HCPCS: 36415; 36591; 80048; 80053; 82378; 82728; 83540; 83735; 84443; 85025; 96360; 96413; 96523; 99213

== ENCOUNTER 2016-08-26 14:01 | Outpatient (RCR) | payer MEDICARE, OTHER ==
[2016-08-26 13:16] LABS: BASOPHILS % (AUTO) 0 % (0-10); EOSINOPHILS % (AUTO) 0 % (0-10); LYMPHOCYTES # (AUTO) 0.9 X 10^3 (1.0-4.0); LYMPHOCYTES % (AUTO) 4 % (12-44); MEAN CORPUSCULAR HEMOGLOBIN 31 PG (25-34); MEAN CORPUSCULAR HGB CONC 31 G/DL (32-36); MEAN CORPUSCULAR VOLUME 98 FL (80-99); MEAN PLATELET VOLUME 7.7 FL (7.4-10.4); MONOCYTES # (AUTO) 0.9 X 10^3 (0.0-1.0); MONOCYTES % (AUTO) 4 % (0-12); NEUTROPHILS % (AUTO) 92 % (42-75); PLATELET COUNT 336 10^3/uL (130-400); RED BLOOD COUNT 3.98 10^6/uL (4.35-5.85); RED CELL DISTRIBUTION WIDTH 16.2 % (10.0-14.5); WHITE BLOOD COUNT 23.9 10^3/uL (4.3-11.0)
[~2016-08-26 14:01] MED LIST changes: -NS (IVPB) CANCER CENTER 250 ML ONE; -NS IV 500 ML (CANCER CENTER) 500 ML ONE; +NS IV 500 ML (CANCER CENTER) IV SCH
[2016-08-26 14:19] LABS: ALANINE AMINOTRANSFERASE 7 U/L (0-55); ALBUMIN 2.8 G/DL (3.2-4.5); ANION GAP 12 MMOL/L (5-14); ASPARTATE AMINO TRANSFERASE 19 U/L (5-34); BILIRUBIN,TOTAL 0.4 MG/DL (0.1-1.0); BLOOD UREA NITROGEN 25 MG/DL (7-18); BUN/CREATININE RATIO 30; CALCIUM 8.9 MG/DL (8.5-10.1); CARBON DIOXIDE 28 MMOL/L (21-32); CHLORIDE 97 MMOL/L (98-107); CREATININE SERUM 0.84 MG/DL (0.60-1.30); GFR ESTIMATED > 60; GLUCOSE 97 MG/DL (70-105); POTASSIUM 4.5 MMOL/L (3.6-5.0); SODIUM 137 MMOL/L (135-145); TOTAL PROTEIN 5.9 G/DL (6.4-8.2)
== END 2016-11-24 | disposition home or self-care (01) ==
LOC: ONC 14:01
PROVIDERS: ATTEND Internal Medicine Hematology & Oncology
DX: I10 Essential (primary) hypertension; C79.51 Secondary malignant neoplasm of bone; I25.10 Atherosclerotic heart disease of native coronary artery without angina pectoris; D64.9 Anemia, unspecified; Z79.899 Other long term (current) drug therapy; C34.11 Malignant neoplasm of upper lobe, right bronchus or lung; N28.9 Disorder of kidney and ureter, unspecified; E11.21 Type 2 diabetes mellitus with diabetic nephropathy
CPT/HCPCS: 36591; 80053; 85025; 99213